=== PATIENT | female | born 2000 | race Hispanic/Latino ===

== ENCOUNTER 2019-09-17 17:07 | Inpatient (IN) | payer MEDICAID ==
[~2019-09-17] VITALS: Ht 162.6 cm; Wt 81.2 kg
[2019-09-17] MEDS: OXYTOCIN-LR 20 UNITS/1000 ML 1,000 ML IV SCH (02:15)
[2019-09-17] MEDS ORDERED: LACTATED RINGERS 500 ML 500 ML IV PRN (17:30)
[2019-09-17] MEDS ORDERED: AMPICILLIN 2GM+NS 100ML 100 ML IV SCH (17:30)
[2019-09-17] MEDS ORDERED: MEPERIDINE-PF 50 MG/ML SYG IVP PRN (17:30)
[2019-09-17] MEDS ORDERED: EPHEDRINE SULFATE 50 MG/ML AMPULE IVP PRN (17:30)
[2019-09-17] MEDS ORDERED: PROMETHAZINE HCL 25 MG/ML 1ML AMPULE IM PRN (17:30)
[2019-09-17] MEDS: AMPICILLIN 1GM+NS 50ML 50 ML IV SCH ×2 (17:30→22:49)
[2019-09-17] MEDS ORDERED: NALOXONE HCL 0.4 MG/1 ML ML IV PRN (17:30)
[2019-09-17] MEDS ORDERED: OXYTOCIN-LR 20 UNITS/1000 ML 1,000 ML IV SCH (18:30)
[2019-09-17 19:00] VITALS: BP 136/88
[2019-09-17] MEDS: LACTATED RINGERS 1000ML 1,000 ML IV PRN ×2 (19:16→23:45)
[2019-09-17] MEDS ORDERED: ROPIVACAINE 0.2% 100ML VIAL 100 ML EP PRN (22:00)
[2019-09-18] MEDS ORDERED: LIDOCAINE HCL 1% 20 ML VIAL ONE (01:50)
[2019-09-18] MEDS ORDERED: MEASLES/MUMPS/RUBELLA VACCINE, LIVE 0.5 ML/VIAL SQ PRN (02:45)
[2019-09-18] MEDS ORDERED: WITCH HAZEL 1 PAD TP PRN (02:45)
[2019-09-18] MEDS ORDERED: ACETAMINOPHEN-CODEINE 300/30MG TAB PO PRN (02:45)
[2019-09-18] MEDS ORDERED: ACETAMINOPHEN 325 MG TAB PO PRN (02:45)
[2019-09-18] MEDS ORDERED: DIPH,PERTUSS(ACELL),TET VAC/PF 0.5 ML VIAL IM PRN (02:45)
[2019-09-18] MEDS ORDERED: LANOLIN 30GM OINTMENT TP PRN (02:45)
[2019-09-18] MEDS ORDERED: BENZOCAINE/LANOLIN/ALOE VERA 60 ML AEROSOL TP PRN (02:45)
[2019-09-18] MEDS: OXYTOCIN-LR 20 UNITS/1000 ML 1,000 ML IV SCH (03:15)
[2019-09-18 04:20] VITALS: BP 123/71; PULSE 79; RESP 20; TEMP 99.4
[2019-09-18] MEDS: IBUPROFEN 600 MG TABLET PO PRN ×2 (05:31→21:29)
[2019-09-18 07:23] VITALS: BP 120/72; PULSE 76; RESP 17; TEMP 98
[2019-09-18] MEDS: DOCUSATE SODIUM 100 MG CAP PO SCH ×2 (09:12→21:28)
[2019-09-18 11:04] VITALS: BP 114/69; PULSE 72; RESP 18; TEMP 97.5
[2019-09-18 16:53] VITALS: BP 135/84; PULSE 75; RESP 17; TEMP 97.7
[2019-09-18 19:17] VITALS: BP 122/67; PULSE 81; RESP 20; TEMP 98.3
[2019-09-18] MEDS: AMPICILLIN 1GM+NS 50ML 50 ML IV SCH (19:57)
--- NOTE | 2019-09-18 23:12 | NUR ---
PT'S REPORT GIVEN TO Bennie MUELLER RN.
[2019-09-18 23:47] VITALS: BP 144/78; PULSE 68; RESP 20; TEMP 98.1
[2019-09-19 03:56] VITALS: BP 126/80; PULSE 81; RESP 20; TEMP 98.1
[2019-09-19 08:00] VITALS: BP 130/78; PULSE 76; RESP 18; TEMP 98.2
[2019-09-19] MEDS: DOCUSATE SODIUM 100 MG CAP PO SCH (08:19)
[2019-09-19] MEDS: IBUPROFEN 600 MG TABLET PO PRN (08:19)
[2019-09-19 11:51] VITALS: BP 130/82; PULSE 74; RESP 18; TEMP 98.9
== END 2019-09-19 12:47 | disposition home or self-care (01) | DRG 560 ==
LOC: EDH 17:07 → LDH 17:08 → WSH 09-18 04:20
PROVIDERS: ADMIT Obstetrics & Gynecology; ATTEND Obstetrics & Gynecology
PROC: 10E0XZZ Delivery of Products of Conception, External Approach (ICD-10-PCS; principal; 2019-09-18)
PROC: 6A550ZT Pheresis of Cord Blood Stem Cells, Single (ICD-10-PCS; 2019-09-18)
PROC: 0W8NXZZ Division of Female Perineum, External Approach (ICD-10-PCS; 2019-09-18)
PROC: 00HU33Z Insertion of Infusion Device into Spinal Canal, Percutaneous Approach (ICD-10-PCS; 2019-09-18)
PROC: 3E0R3BZ Introduction of Anesthetic Agent into Spinal Canal, Percutaneous Approach (ICD-10-PCS; 2019-09-18)
DX: O42.92 Full-term premature rupture of membranes, unspecified as to length of time between rupture and onset of labor (principal); Z37.0 Single live birth; E03.9 Hypothyroidism, unspecified; O99.284 Endocrine, nutritional and metabolic diseases complicating childbirth; Z3A.37 37 weeks gestation of pregnancy

== ENCOUNTER 2021-03-18 00:20 | Observation (INO) | payer MEDICAID ==
[~2021-03-18] VITALS: Ht 160 cm; Wt 80.7 kg
[~2021-03-18 00:20] MED LIST: METH-386 PO; PREN1TAB80 PO
[2021-03-18 00:22] VITALS: BP 129/76
[2021-03-18 01:00] LABS: APPEARANCE,URINE Clear (CLEAR); BILIRUBIN,URINE Negative (NEGATIVE); COLOR,URINE Yellow (YELLOW); GLUCOSE, URINE (UA) Negative (NEGATIVE); KETONES,URINE Negative (NEGATIVE); LEUKOCYTE ESTERASE ,URINE Moderate (NEGATIVE); NITRATE,URINE Negative (NEGATIVE); OCCULT BLOOD,URINE Negative (NEGATIVE); PH,URINE 6.5 (5.0-8.0); PROTEIN,URINE Negative (NEGATIVE)
[2021-03-18 01:19] LABS: BACTERIA,URINE Few /HPF (None Seen); RBC,URINE 0-1 /HPF (0-1)
[2021-03-18] MEDS ORDERED: LACTATED RINGERS 1000ML 1,000 ML IV ONE (01:55)
[2021-03-18] MEDS ORDERED: TERBUTALINE SULFATE VIAL 1MG/ML SQ SCH (02:00)
[2021-03-18] MEDS ORDERED: LACTATED RINGERS 1000ML 1,000 ML IV SCH (02:00)
[2021-04-01] MEDS ORDERED: METH-386 PO (18:01)
[2021-04-01] MEDS ORDERED: PNV#1COM14 PO (18:01)
== END 2021-03-18 03:50 | disposition home or self-care (01) ==
LOC: EDH 00:20 → LDH 00:33
PROVIDERS: ADMIT Obstetrics & Gynecology; ATTEND Obstetrics & Gynecology
DX: O62.9 Abnormality of forces of labor, unspecified (principal); O99.891 Other specified diseases and conditions complicating pregnancy; M54.50 Low back pain, unspecified; Z3A.36 36 weeks gestation of pregnancy; Z79.899 Other long term (current) drug therapy
CPT/HCPCS: 59025; 81001; 87088; 96360; 96361; 96372; G0378; G0379; J3105; J7120